=== PATIENT | male | born 1995 | race Caucasian/White ===

== ENCOUNTER 2021-01-25 01:07 | Emergency (ER) | payer OTHER ==
[2021-01-25 01:43] VITALS: BP 128/83; PULSE 96; TEMP 98.2; BMI 30.1
[2021-01-25] MEDS ORDERED: KETOROLAC TROMETHAMINE 15 MG/ML VIAL IM ONE (02:02)
[2021-01-25] MEDS ORDERED: DEXAMETHASONE 4 MG TABLET (FP) PO ONE (02:02)
[2021-01-25] MEDS ORDERED: DEXAMETHASONE SOD PHOSPHATE 10 MG/1 ML VIAL ONE (02:05)
[2021-01-25] MEDS ORDERED: KETOROLAC TROMETHAMINE 15 MG/ML VIAL ONE (02:05)
[2021-01-26 10:08] LABS: SARS-CoV-2 NAA Not Detected (Not Detected)
== END 2021-01-25 04:24 | disposition home or self-care (01) ==
LOC: JER 01:07
PROC: 3E0233Z Introduction of Anti-inflammatory into Muscle, Percutaneous Approach (ICD-10-PCS; principal; 2021-01-25)
DX: J02.9 Acute pharyngitis, unspecified (principal); Z11.52 Encounter for screening for COVID-19
CPT/HCPCS: 87880; 99284-25; C9803; U0003; U0005

== ENCOUNTER 2021-03-13 01:05 | Emergency (ER) | payer OTHER ==
[2021-03-13 01:26] VITALS: BP 142/96; PULSE 84; TEMP 98.3; BMI 30.7
[2021-03-13] MEDS ORDERED: DEXAMETHASONE 4 MG TABLET (FP) PO ONE (02:04)
[2021-03-13] MEDS ORDERED: KETOROLAC TROMETHAMINE 30 MG/1 ML VIAL IM ONE (02:04)
[2021-03-13] MEDS ORDERED: KETOROLAC TROMETHAMINE 30 MG/1 ML VIAL ONE (02:19)
[2021-03-13] MEDS ORDERED: DEXAMETHASONE 4 MG TABLET (FP) ONE (02:19)
== END 2021-03-13 04:09 | disposition home or self-care (01) ==
LOC: JER 01:05
PROC: 3E0233Z Introduction of Anti-inflammatory into Muscle, Percutaneous Approach (ICD-10-PCS; principal; 2021-03-13)
DX: J03.90 Acute tonsillitis, unspecified (principal); J02.9 Acute pharyngitis, unspecified; Z11.52 Encounter for screening for COVID-19
CPT/HCPCS: 87880; 99284-25; C9803; U0003; U0005

== ENCOUNTER 2023-04-17 22:23 | Emergency (ER) | payer OTHER ==
[2023-04-17 22:31] VITALS: BP 125/85; PULSE 63; RESP 18; TEMP 98.5; BMI 29.2
[2023-04-17] MEDS ORDERED: KETOROLAC TROMETHAMINE 15 MG/ML VIAL IM ONE (23:12)
[2023-04-17] MEDS ORDERED: METHOCARBAMOL 500 MG TABLET PO ONE (23:13)
[2023-04-17] MEDS ORDERED: METHOCARBAMOL 500 MG TABLET ONE (23:24)
[2023-04-17] MEDS ORDERED: KETOROLAC TROMETHAMINE 15 MG/ML VIAL ONE (23:25)
== END 2023-04-18 00:14 | disposition home or self-care (01) ==
LOC: JER 22:23
PROC: 3E0233Z Introduction of Anti-inflammatory into Muscle, Percutaneous Approach (ICD-10-PCS; principal; 2023-04-17)
DX: R05.9 Cough, unspecified (principal); R06.2 Wheezing; R11.2 Nausea with vomiting, unspecified; R06.02 Shortness of breath; M25.511 Pain in right shoulder; Z20.822 Contact with and (suspected) exposure to COVID-19
CPT/HCPCS: 0241U-QW; 71046-TC-FY; 93005; 93010; 99285-25